=== PATIENT | female | born 1990 | race Caucasian/White ===

== ENCOUNTER 2016-07-30 10:21 | Inpatient (IN) | payer OTHER ==
[2016-08-02] MEDS ORDERED: OXYTOCIN 10 UNITS/ML VIAL ONE (11:47)
[2016-08-02] MEDS ORDERED: IV START KIT ONE (11:47)
[2016-08-02] MEDS ORDERED: PUMP TUBING ONE (11:48)
[2016-08-02] MEDS ORDERED: MINERAL OIL 25 ML BOT ONE (11:48)
[2016-08-02] MEDS ORDERED: OXYTOCIN IN LR 500 ML IV ONE (11:48)
[2016-08-02] MEDS ORDERED: LIDOCAINE Viscous 2% 15 ML UDCUP ONE (11:48)
[2016-08-02] MEDS ORDERED: LIDOCAINE 1% (PRES FREE) 30 ML VIAL ONE (11:48)
[2016-08-02] MEDS ORDERED: SODIUM CHLORIDE 0.9% FLUSH 10 ML ONE (11:48)
--- NOTE | 2016-08-02 12:43 | HP ---
ASHLEIGH DAS : 1990 DATE OF ADMISSION: August 02, 2016 HISTORY OF PRESENT ILLNESS: Ashleigh Das is a 26-year-old female, gestational age of 40.6 weeks admitted with recurrent episodes of hypertension in the office. Her home blood pressure values ranged from 126/59 to 133/86. However, in the office on four occasions, the blood pressures ranged from 130 to 170/100. The last one was on July 30, 2016, and she was sent to [facility] for induced hypertension labs and evaluated by Dr. Hugo who did not feel she needed admission. I discussed options with the patient including resting at home versus induction of labor and cervical ripening for post dates induced hypertension and discussed Cytotec and Pitocin versus continuing the . Risks of Cytotec were discussed including hyperstimulation and distress and uterine rupture versus worsening of blood pressures including the possibility of preeclampsia. Patient and partner have opted for induction of labor with cervical ripening with Cytotec at this time. OB HISTORY: 1, para 0. BOSOM PRESSER HISTORY: Menarche 10 times 31 times 4. She has had no sexually transmitted diseases. PAST MEDICAL HISTORY: Negative. SOCIAL HISTORY: Nonsmoker, nondrinker. PAST SURGICAL HISTORY: Negative. FAMILY HISTORY: Includes diabetes. REVIEW OF SYSTEMS: Noncontributory. The baby is moving. PHYSICAL EXAMINATION: GENERAL: This is a healthy female in no distress. Physical exam taken from the chart. NECK: Thyroid was not palpable. BREAST: Exam was normal. HEART: Regular sinus rhythm. No heart murmurs. LUNGS: Clear. ABDOMEN: Currently the abdomen is measuring 40 weeks size, vertex presentation. heart present. Abdomen is nontender. PELVIC: Cervix is 1 cm, 70% effaced, vertex -3. EXTREMITIES: 1+ edema both legs. Reflexes are normal. ASSESSMENT: induced hypertension which does resolve with bedrest. PLAN: Cervical ripening and then induction of labor.
[2016-08-02] MEDS: MISOPROSTOL 25 MCG TABLET VG SCH ×2 (12:45→17:42)
[2016-08-02 13:13] LABS: ABSOLUTE NEUTROPHIL COUNT 8.2 K/mm3 (1.8-7.7); BASO % 0.1 % (0.2-1.0); EOS # 0.1 (0.0-0.5); EOS % 0.5 % (0.9-2.9); HEMATOCRIT 33.1 % (37.0-47.0); HEMOGLOBIN 11.1 gm/l (12.0-16.0); IMM NEUT% 0.4 % (0-1); LYMPH # 1.9 (1.0-4.8); LYMPH % 17.3 % (15-45); MEAN CELL VOLUME 90.9 fl (81.0-99.0); MEAN CORPUSCULAR HEMOGLOBIN 30.5 pg (27.0-31.0); MEAN CORPUSCULAR HGB CONC 33.5 g/dl (33.0-37.0); MEAN PLATELET VOLUME 11.5 fl (7.4-10.4); MONO # 0.9 (0.0-0.8); MONO % 8.1 % (4-12); NEUT % 73.6 % (43-75); PLATELET COUNT 270 K/mm3 (130-400); RED CELL DISTRIBUTION WIDTH 14.6 % (11.5-14.5)
[2016-08-02 13:17] LABS: CREATININE,RANDOM URINE 55 mg/dL
[2016-08-02 13:20] LABS: ALB/GLOB RATIO 1.1 (>1.0); ALBUMIN 3.4 gm/dL (3.5-5.7); CALCIUM 9.2 mg/dL (8.6-10.3); URIC ACID 4.9 mg/dL (2.3-7.6)
[2016-08-02 14:14] VITALS: BMI 51.5
--- NOTE | 2016-08-02 15:06 | PDOC36 ---
Provider Note Subject: Intrapartum note Note: Pt was seen and counseled. 26yo at 40+6, admitted from clinic with high blood pressure. Initial BP in FBC normal. PIH labs are unremarkable. FHT = reactive, reassuring, cat I, no decels TOCO = no ctx Cx by RN - 1cm dilated Abdomen: efw = 4200g discussed gestational hypertension, pt has intermittently elevated blood pressures, however not consistent. No proteinuria and PIH labs are negative, no preeclampsia at this time. reasonable for induction for post-term . risks of IOL including c/section, hyperstimulation, infection are reviewed. misoprostol for cervical ripening indication and risks are reviewed, discussed traditionally used for induction, but not FDA approved pitocin and epidural also discussed start misoprostol cervical ripening
[2016-08-02] MEDS ORDERED: EPINEPHRINE ONE (16:16)
--- NOTE | 2016-08-02 17:19 | PDOC36 ---
Provider Note Subject: Induction note Note: Pt feels very mild contractions. FHT: 130's, reactive, mod phuong, no decels [place]: q2-5 min SVE: 3/70/-3, soft posterior s/p misoprostol x 1 OK to start pitocin at this time
[2016-08-02] MEDS: LACTATED RINGERS 1,000 ML IV SCH (17:28)
[2016-08-02] MEDS: OXYTOCIN IN LR 500 ML IV PRN ×4 (17:32→23:17)
[2016-08-03] MEDS: OXYTOCIN IN LR 500 ML IV PRN ×7 (00:29→05:20)
[2016-08-03] MEDS: LACTATED RINGERS 1,000 ML IV SCH ×4 (05:20→21:54)
--- NOTE | 2016-08-03 08:05 | PDOC36 ---
Provider Note Subject: Progress Note Note: H&P reviewed. 26 yo at 41 weeks, being induced since yesterday afternoon. Pt hoping for natural childbirth but starting to have some bad pain low and in front. No ROM yet but some bloody show. FH category 1, baseline 120, boy, EFW 4000gm perhaps VE cervix anterior, stretchy 4cm, 95% eff, membranes loose, vertex loosely applied -3 station Pitocin now at 13 mu/mn Imp: Hopefully now moving in to active labor. Pelvis seems adeq for delivery of this baby. Plan: Continue pitocin Shower or jacuzzi Ambulate Consider AROM with next exam.
--- NOTE | 2016-08-03 12:46 | PDOC36 ---
Provider Note Subject: Progress Note Note: Pt feeling more pain, mostly in front, but when she is in bed its in her back. Contractions are longer. Pitocin at 15mu/mn FH cat 1 VE cvx high but anterior, vertex still loosely applied membranes intact and bulging stretchy, 5cm, -3 station, 100% eff AROM performed with pt's permission, yielding clear fluid. Imp: Actve labor Pt trying to avoid pain meds. Plan: Expectant, continue pitocin. Position change.
[2016-08-03] MEDS ORDERED: EPIDURAL PUMP SET ONE (14:50)
[2016-08-03] MEDS ORDERED: FENTANYL/ROPIVACAINE EPIDURAL 250 ML EP ONE (14:50)
[2016-08-03] MEDS ORDERED: OXYTOCIN IN LR 500 ML IV ONE (15:14)
[2016-08-03] MEDS ORDERED: EPIDURAL PROCEDURE TRAY ONE (15:18)
[2016-08-03] MEDS: FENTANYL/ROPIVACAINE EPIDURAL 250 ML EP SCH (15:48)
[2016-08-03] MEDS ORDERED: EPHEDRINE SULFATE 50 MG/ML 1ML VIAL IV PRN (16:01)
[2016-08-03] MEDS ORDERED: ONDANSETRON 4 MG/2ML 2 ML VIAL IV PRN (16:01)
[2016-08-03] MEDS ORDERED: LACTATED RINGERS 500 ML IV PRN (16:01)
[2016-08-03] MEDS ORDERED: NALOXONE HCL 0.4 MG/ML VIAL IV PRN (16:01)
[2016-08-03] MEDS ORDERED: DIPHENHYDRAMINE HCL 50 MG/1 ML VIAL IV PRN (16:01)
[2016-08-03] MEDS ORDERED: SODIUM CHLORIDE 0.9% 500 ML IV PRN (16:01)
[2016-08-03] MEDS ORDERED: METOCLOPRAMIDE HCL 5 MG/ML 2ML VIAL IV PRN (16:01)
[2016-08-03] MEDS ORDERED: NALBUPHINE HCL 20 MG/ML AMP IV PRN (16:01)
[2016-08-03] MEDS ORDERED: CALCIUM CARBONATE 500 MG TAB.CHEW PO ONE (18:29)
--- NOTE | 2016-08-03 18:29 | PDOC36 ---
Provider Note Subject: Progress and descent Note: S: Pt is much more comfortable after the epidural. But now she is shaking. She does not feel cold. Not aware of contrx, no pressure Minimal water has come out. O: VS stable afebrile FH category 1, except for a few variables earlier Exam: cervix 100%, 8cm, stretchy vertex well applied and even coming thru the cervix, -1 station Position ROT/ROP ? Imp: Good progress since epidural placed. Possibly OP Plan: Position change. Left lateral for a bit. Expectant management on pitocin 16mu/mn.
[2016-08-03] MEDS ORDERED: CITRIC ACID/SODIUM CITRATE 15 ML UDCUP PO ONE (20:27)
--- NOTE | 2016-08-03 21:08 | PDOC36 ---
Provider Note Subject: progress note Note: Pt feeling very comfortable. No pain no pressure. Exam FH 120-130 baseline but accels up to 190's, no worrisome pattern VE cervix 9cm, with vertex coming thru -1 station Pt does have some good pushing effort ?position, + caput, +molding. Imp: Progressive change Plan: Continue pit, position change.
--- NOTE | 2016-08-03 23:17 | PDOC36 ---
Provider Note Subject: Progress note Note: S: Berna having more pain, gerry low and in front. She is anxious and shaking some. O: FH 130 with accels to 200, gerry with scalp stim of position change. Active baby boy. VE rim of cervix all around, vertex -1/0 station IUPC discussed, but when I tried to place it, vertex had come down to 0 station withcervix very hard to palpate. I was not able to float the catheter in, but scalp clip placed. Imp: Progressive change ?head position but it seems to de descending. Plan: continue pit, expectant.
--- NOTE | 2016-08-04 01:15 | PDOC36 ---
Provider Note Subject: Progress Note: Epidural working well. Pt now feeling pressure like she needs to move her bowels. She has an instinct to push. Exam: fully dilated with vertex lower, caput is at +2 station, but cranium is at perhaps 0/+1 station Pt will start pushing with contractions.
[2016-08-04] MEDS: OXYTOCIN IN LR 500 ML IV PRN (01:29)
[2016-08-04] MEDS ORDERED: CEFAZOLIN SODIUM 2 GRAM DUPLEX 2 G in Premix (D5W) 50 ml 1 EACH IV PRN (03:04)
[2016-08-04] MEDS ORDERED: CEFAZOLIN SODIUM 2 GRAM DUPLEX 50 ML IV ONE (03:11)
[2016-08-04] MEDS ORDERED: LACTATED RINGERS 1,000 ML IV SCH (03:15)
[2016-08-04] MEDS: LACTATED RINGERS 1,000 ML IV SCH ×3 (03:16→19:10)
[2016-08-04] MEDS ORDERED: FENTANYL 100 MCG/2 ML VIAL ONE (03:16)
[2016-08-04] MEDS ORDERED: EtCO2 Monitoring Set ONE (03:33)
[2016-08-04] MEDS ORDERED: EPHEDRINE SULFATE UD SYR 25 MG 25 MG/5 ML SYRINGE IV ONE (03:42)
[2016-08-04] MEDS ORDERED: MIDAZOLAM HCL 5 MG/5 ML VIAL ONE ×2 (03:57→04:33)
[2016-08-04] MEDS ORDERED: METOCLOPRAMIDE HCL 5 MG/ML 2ML VIAL ONE (04:32)
[2016-08-04] MEDS ORDERED: OXYTOCIN 10 UNITS/ML VIAL ONE (04:32)
[2016-08-04] MEDS ORDERED: ROPIVACAINE 0.5% 30 ML VIAL ONE (04:32)
[2016-08-04] MEDS ORDERED: OXYCODONE HCL 5 MG TABLET PO PRN (06:26)
[2016-08-04] MEDS ORDERED: LANOLIN 50 APPLIC/7G TUBE TP PRN (06:26)
[2016-08-04] MEDS ORDERED: DIPHENHYDRAMINE HCL 25 MG CAPSULE PO PRN (06:26)
[2016-08-04] MEDS ORDERED: OXYTOCIN IN LR 500 ML IV ONE (06:26)
[2016-08-04] MEDS ORDERED: DIPHTH,PERTUSS(ACELL),TET VAC 0.5 ML VIAL IM V ONE (06:26)
[2016-08-04] MEDS ORDERED: DIPHENHYDRAMINE HCL 50 MG/1 ML VIAL IV PRN (06:26)
[2016-08-04] MEDS ORDERED: MEASLES,MUMPS&RUBELLA VACCINE 0.5 ML VIAL SUB-Q V ONE (06:26)
--- NOTE | 2016-08-04 06:31 | PDOC36 ---
Provider Note Subject: pre-op note Note: Pt is exhausted and discouraged. Despite coaching she is not pushing effectively. Vertex is perhaps asynclitic, ROP, with large caput but cranium has shown no further descent from 0/+1 station FH stable, category 1 Imp: Slow progress and descent since 6:30pm when pt was 8cm. Based on the size of this head, the baby feels larger than I hoped. At this point , this is failure to descend in the second stage of labor. Plan: Primary section for delivery.
--- NOTE | 2016-08-04 06:31 | PCMBPN ---
Brief Post Op Note: Date of Procedure: 08/04/16 Start Time: 03:50 Preoperative Diagnosis: 1. Failure to descend in second stage 2. Respiratory arrest Postoperative Diagnosis: 1. Same 2. Respiratory arrest probably secondary to high spinal 3. Persistent occiput posterior Procedure: Primary section (lower uterine segment transverse incision) Surgeon: Jennifer Palomino Assist:Dr Vickie MD Anesthesia: Tabby Ocampo CRNA General anesthesia with intubation after epidural bolus and respiratory arrest Findings: Thick adipose layer, well developped CHRIS, baby boy with ROP deflexed head, old meconium. at 03:57, baby with good tone and respiratory effort immediately, 8/ 9, weight 7lb 15oz Posterior placenta Condition: Guarded Complications: no surgical complications IV Fluids: 3300 mLs of LR Urine Output: 100 mLs Estimated Blood Loss: 800 mLs Tourniquet Time: N/A Specimens: N/A Implants: N/A Drains: N/A
[2016-08-04] MEDS ORDERED: PUMP TUBING ONE (06:34)
[2016-08-04] MEDS: FENTANYL/ROPIVACAINE EPIDURAL 250 ML EP SCH (06:47)
[2016-08-04] MEDS: OXYCODONE/ACETAMINOPHEN 5/325 MG TABLET PO PRN ×4 (06:49→22:11)
[2016-08-04] MEDS: KETOROLAC TROMETHAMINE 30 MG/ML 1 ML VIAL IV PRN ×2 (07:13→20:18)
--- NOTE | 2016-08-04 09:12 | OP ---
Mary Das : 1990 DATE OF SURGERY: 08/04/2016 PREOPERATIVE DIAGNOSES: 1. Failure to descend in the second stage. 2. Respiratory arrest. POSTOPERATIVE DIAGNOSES: 1. Failure to descend in the second stage. 2. Persistent occiput posterior. 3. Respiratory arrest probably secondary to high spinal anesthesia. PROCEDURE PERFORMED: A primary section (lower uterine segment transverse incision). SURGEON: Dr. Jennifer Palomino. CERAMIC ENGINEERING PROFESSOR: Dr Moo Johnston. SASH MAKER: Tabby Ocampo CRNA ESTIMATED BLOOD LOSS: 800 mL. FINDINGS: The patient was delivered of a vigorous baby boy from the right occiput posterior position. He had a deflexed head. There was old meconium in the fluid. time was at 0357 on 08/04/2016. He was born with good tone and respiratory effort. His scores were 8 at one minute and 9 at five minutes and 9 at ten minutes. He weighed 7 pounds 15 ounces. INDICATION: Berna Das is a 26-year-old primigravida who was admitted for induction of labor because of postdates and labile hypertension. She progressed through her labor to about 8 cm around 6:30 p.m. There was then very slow progression and descent after that point, but the patient did become fully dilated and the top of the head was almost +2 station. It was clear, however, that there was a large amount of molding and caput and the cranium of the baby actually never came down through the narrowest part of the pelvis. The patient was fully dilated and began pushing approximately 10 minutes before 1:00AM. At that time, the scalp clip came off, but it was replaced. Approximately a half of an hour later there was very little descent of the presenting part and it was decided to increase the Pitocin to 17 milliunits per minute. The patient had relatively poor pushing effort, but there was virtually no movement of the presenting part. Finally, at approximately 0245 on the decision was made to proceed with a section. Risks and possible complications were reviewed and the consent was signed. My concern was that this baby was actually bigger than I expected. I thought that he was in a persistent occiput posterior position and I felt that a vaginal was unlikely. The operating room team was called in. Fortunately, heart tones were always very normal and reassuring, so I did not feel that we needed to hurry. The patient was given a bolus of meds through her epidural catheter in the delivery room by the an/sqq 89(v)15 sonar system journeyman at 0321. Just a few minutes after that the patient began feeling different. She mouthed that she could not speak and knew that something was not right. Just shortly after that she went into respiratory arrest at 0324. A code was called. Fortunately Tabby Ocampo and the nurses and I witnessed this respiratory arrest. The patient was immediately placed on oxygen by a face mask. The ambu bag was obtained and an oral airway was placed and then we could oxygenate her fairly well. The patient was completely unresponsive, however, so the decision was made to intubate her immediately. This was done without any delay by the an/sqq 89(v)15 sonar system journeyman. During this time, there was a concern about the heart which initially was lost because the monitor pulled off her leg as we changed her position for the intubation. Once we got the baby back on the monitor his heart rate was in the 90's. As soon as Berna's oxygenation improved, however, his heart rate started coming up. I rapidly made the decision to move to the operating room quickly for the section and this was done without delay. By the time the patient was brought to the operating room and was placed on the operating room table heart tones had come back up to the high 120's and were amazingly stable. I suspected the baby's deceleration might have lasted as much as 5 minutes, but with good oxygenation for mom the baby's oxygenation improved and the deceleration resolved without any other resuscitation. At this point, it was clear that we needed to proceed with the section as soon as Berna was stabilized. Preparations were made in the usual fashion for the surgery and heart tones were monitored. Once Tabby felt that it was okay to proceed with the surgery the scalp clip was removed and the abdomen was prepped and draped for a transverse suprapubic incision. While we were still monitoring the baby a timeout was performed verifying proper patient, procedure, position, personnel, and equipment. Our working diagnosis at that time was that this patient had developed a high spinal anesthesia due to the bolus. It was felt that it was safe for Berna to proceed with the surgery under general anesthesia and intubation. Dr. Gabriel was called for resuscitation of the baby and our full team was ready and available. After verifying an adequate level of anesthesia a transverse incision was made above the symphysis pubis with the scalpel. This was carried down through the thick adipose layer with sharp and blunt dissection and using cautery for hemostasis. The fascia was incised the length of the incision. It was mobilized superiorly and inferiorly. The muscles were in the midline. Peritoneum was identified and opened vertically. There was a moderate amount of free fluid in the peritoneal cavity. The lower uterine segment was well developed. The Srini retractor was rapidly placed. A transverse incision was then made in the visceral peritoneum which was mobilized inferiorly. A transverse incision was then made in the lower uterine segment with a scalpel and this was carried down to the endometrial cavity. Membranes were ruptured yielding a large amount of meconium stained fluid; this looked like old meconium. During labor we never did see much amniotic fluid because the baby's head was functioning as a cork. The baby's left shoulder was presenting. With some difficulty I was able to gently insert my hand in front of the baby's face and on the right side. His head was then flexed and the head was elevated into the incision. The baby was then delivered from a right occiput posterior position without any difficulty. When he was born he had reasonably good tone and some early respiratory effort. Mouth and nose were suctioned as he was stimulated and he did have some crying. The cord was clamped and then cut and the baby was handed to the resuscitation nurse. His scores were 8 at one minute, 9 at five minutes, and 9 at ten minutes. Eventually he was weighed at 7 pounds 15 ounces. A segment of cord was preserved for cord blood gases and then some regular cord blood was obtained. The placenta was then delivered from the posterior part of the uterus without difficulty. All blood clots and debris were removed from the uterus. The uterus was then exteriorized. T-clamps were placed on the uterine incision. There was a small extension of the incision down from the right angle, this was repaired first with a continuous interlocking suture of 1 Chromic. The remainder of the uterine incision repair was then done starting at the left angle and this yielded good hemostasis. A second layer was then used to imbricate the full incision. The pelvis was well irrigated with warm saline and blood clots and debris were removed. The uterus was placed back within the peritoneal cavity. Further irrigation was done and hemostasis was again verified. The Srini retractor was then removed. Lap, sponge, and instrument counts were reported as correct. The abdomen was then closed in layers as follows peritoneum and muscle were reapproximated with some 2-0 Vicryl suture, the fascia was closed with a 1 PDS looped suture, the adipose layer was reapproximated with 0 plain suture, and then the skin was closed with 4-0 Monocryl followed by Steri-Strips. The patient was then cleaned up and the drapes were removed. According to the an/sqq 89(v)15 sonar system journeyman she had started breathing on her own for the last 20 minutes or so of the surgery. Indeed within a short amount time it was possible to extubate her. Berna was then taken to the intensive care unit for her postoperative recovery. She was in good condition and breathing well on her own. JOB: [id number]
[2016-08-04 09:14] LABS: HEMATOCRIT 25.3 % (37.0-47.0); HEMOGLOBIN 8.5 gm/l (12.0-16.0); MEAN CELL VOLUME 91.3 fl (81.0-99.0); MEAN CORPUSCULAR HEMOGLOBIN 30.7 pg (27.0-31.0); MEAN CORPUSCULAR HGB CONC 33.6 g/dl (33.0-37.0); RED CELL DISTRIBUTION WIDTH 14.7 % (11.5-14.5)
[2016-08-04 09:40] LABS: ALB/GLOB RATIO 0.9 (>1.0); ALBUMIN 2.3 gm/dL (3.5-5.7); CALCIUM 7.9 mg/dL (8.6-10.3)
[2016-08-04] MEDS: DOCUSATE SODIUM 100 MG CAPSULE PO SCH ×2 (12:35→20:19)
[2016-08-04] MEDS: HYDROMORPHONE PCA (MONOJECT) 12 MG/30 ML INJ.SOLN IV SCH ×2 (19:08→19:11)
[2016-08-04] MEDS: PRENATAL VIT/FE FUMARATE/FA 1 TABLET PO SCH (19:09)
[2016-08-05] MEDS: LACTATED RINGERS 1,000 ML IV SCH ×4 (00:01→09:41)
[2016-08-05] MEDS: OXYCODONE/ACETAMINOPHEN 5/325 MG TABLET PO PRN ×5 (02:30→19:39)
[2016-08-05] MEDS: KETOROLAC TROMETHAMINE 30 MG/ML 1 ML VIAL IV PRN (02:30)
[2016-08-05 06:00] LABS: HEMATOCRIT 26.3 % (37.0-47.0); HEMOGLOBIN 8.6 gm/l (12.0-16.0); MEAN CORPUSCULAR HEMOGLOBIN 31.4 pg (27.0-31.0); MEAN CORPUSCULAR HGB CONC 32.7 g/dl (33.0-37.0); RED CELL DISTRIBUTION WIDTH 15.3 % (11.5-14.5)
--- NOTE | 2016-08-05 06:52 | PDOC44 ---
- Subjective Day: 1 (feels well, offers no complaints) Reports Flatus, Reports Pain Tolerable, Reports , Reports Lochia Light, Reports Tolerating Clear Liquids, Reports Tolerating Regular Diet, Denies Nausea, Denies Vomiting, Denies Fever - Objective Temp Pulse Resp BP Pulse Ox 98.1 F 112 18 132/61 100 08/05/16 02:30 08/05/16 02:30 08/05/16 02:30 08/05/16 02:30 08/04/16 11:50 Lab Results 08/05/16 08/04/16 05:30 09:05 WBC 13.9 H 18.5 H RBC 2.74 L 2.77 L Hgb 8.6 L 8.5 L D Hct 26.3 L 25.3 L Plt Count 214 205 Creatinine 0.8 AST 16 ALT 9 08/05/16 08/04/16 05:30 09:05 MCH 31.4 H MCHC 32.7 L RDW 15.3 H 14.7 H Carbon Dioxide 19 L Glucose 148 H Calcium 7.9 L Alkaline Phosphatase 112 H Total Protein 4.8 L Albumin 2.3 L Albumin/Globulin Ratio 0.9 L Current Medications Generic Name Dose Route Start Last Admin Trade Name Freq PRN Reason Stop Dose Admin Diphenhydramine HCl 25 mg 08/04/16 06:26 Benadryl PO Q6H PRN Itching (Mild/Moderate) Diphenhydramine HCl 25 mg 08/04/16 06:26 Benadryl IV Q6H PRN Itching (Severe) Docusate Sodium 100 mg 08/04/16 09:00 08/04/16 20:19 Colace PO 100 mg BID [place] Administration Emollient Ointment 1 applic 08/04/16 06:26 [id number] TP PRN PRN sore nipples Lactated Ringer's 1,000 mls @ 125 mls/hr 08/04/16 06:26 08/05/16 00:01 Lactated Ringers IV Not Given .Q8H [place] Ibuprofen 800 mg 08/04/16 06:26 Motrin PO Q8H PRN Pain Ketorolac Tromethamine 30 mg 08/04/16 06:26 08/05/16 02:30 Toradol IV 30 mg Q6H PRN Administration Pain (Mild/Moderate) Multivi/Iron Carb/Fe Sulf/FA/Prenat 1 tab 08/04/16 09:00 08/04/16 19:09 Plus PO Not Given DAILY [place] Oxycodone HCl 5 - 10 mg 08/04/16 06:26 Roxicodone PO Q3H PRN Pain (Severe) Oxycodone/Acetaminophen 1 - 2 tab 08/04/16 06:26 08/05/16 06:19 Percocet 5/325 PO 2 tab Q4H PRN Administration Pain (Moderate) Sodium Chloride 10 ml 08/04/16 06:26 08/04/16 20:19 Normal Saline 10ml Flush IV 10 ml PRN PRN Administration IV Flush Sodium Chloride 10 ml 08/04/16 09:00 08/05/16 02:30 Normal Saline 10ml Flush IV 10 ml Q8HR [place] Administration - Physical Exam General: Afebrile, No Acute Distress Psych/Mental Status: Mood/Affect Appropriate, Judgment/Insight Intact, Bonding Well Lungs: Clear to Auscultation Bilaterally, Normal Air Movement Breast: Soft, Skin intact, Nipples Intact, No Tenderness, No Erythema, No Engorged Fundus: Firm, Midline, At Umbilicus, Other (nontender) Abdomen: Normal Bowel Sounds, Obese, Mild Distention, Other (passed flatus, no bowel movement yet), No Tenderness Genitourinary: Other (voiding without difficulty) Lochia: Light Extremities: No Tenderness Wound PROCESS ENG: Dressing in Place, Dressing Clean/Dry/Intact - Problems:Assessment/Plan (1) Anemia, Status: Acute Disposition: Stable
[2016-08-05] MEDS: HYDROMORPHONE PCA (MONOJECT) 12 MG/30 ML INJ.SOLN IV SCH (07:15)
[2016-08-05] MEDS: MISOPROSTOL 25 MCG TABLET VG SCH ×2 (07:16→07:17)
[2016-08-05] MEDS: PRENATAL VIT/FE FUMARATE/FA 1 TABLET PO SCH (09:53)
[2016-08-05] MEDS: IBUPROFEN 800 MG TABLET PO PRN ×2 (09:53→17:50)
[2016-08-05] MEDS: FERROUS SULFATE (65 Fe) 325 MG TABLET PO SCH (09:53)
[2016-08-05] MEDS: DOCUSATE SODIUM 100 MG CAPSULE PO SCH ×2 (09:53→19:39)
[2016-08-06] MEDS: OXYCODONE/ACETAMINOPHEN 5/325 MG TABLET PO PRN ×4 (00:15→18:43)
[2016-08-06] MEDS: IBUPROFEN 800 MG TABLET PO PRN ×3 (03:23→22:17)
[2016-08-06] MEDS: DOCUSATE SODIUM 100 MG CAPSULE PO SCH ×3 (07:15→22:17)
[2016-08-06] MEDS: HYDROMORPHONE PCA (MONOJECT) 12 MG/30 ML INJ.SOLN IV SCH (07:16)
[2016-08-06] MEDS: LACTATED RINGERS 1,000 ML IV SCH ×3 (07:16→22:22)
--- NOTE | 2016-08-06 08:17 | PDOC44 ---
- Subjective Day: 2 (feels well, offers no complaints) Reports Flatus, Reports Pain Tolerable, Reports , Reports Lochia Light, Reports Tolerating Clear Liquids, Reports Tolerating Regular Diet, Denies Nausea, Denies Vomiting, Denies Fever - Objective Temp Pulse Resp BP Pulse Ox 97.8 F 91 18 157/85 100 08/06/16 08:00 08/06/16 08:00 08/06/16 08:00 08/06/16 08:00 08/04/16 11:50 Current Medications Generic Name Dose Route Start Last Admin Trade Name Freq PRN Reason Stop Dose Admin Diphenhydramine HCl 25 mg 08/04/16 06:26 Benadryl PO Q6H PRN Itching (Mild/Moderate) Diphenhydramine HCl 25 mg 08/04/16 06:26 Benadryl IV Q6H PRN Itching (Severe) Docusate Sodium 100 mg 08/04/16 09:00 08/06/16 07:15 Colace PO Not Given BID [place] Emollient Ointment 1 applic 08/04/16 06:26 [id number] TP PRN PRN sore nipples Ferrous Sulfate 325 mg 08/05/16 09:00 08/05/16 09:53 Ferrous Sulfate PO 325 mg DAILY [place] Administration Lactated Ringer's 1,000 mls @ 125 mls/hr 08/04/16 06:26 08/06/16 07:27 Lactated Ringers IV Not Given .Q8H [place] Ibuprofen 800 mg 08/04/16 06:26 08/06/16 03:23 Motrin PO 800 mg Q8H PRN Administration Pain Ketorolac Tromethamine 30 mg 08/04/16 06:26 08/05/16 02:30 Toradol IV 30 mg Q6H PRN Administration Pain (Mild/Moderate) Multivi/Iron Carb/Fe Sulf/FA/Prenat 1 tab 08/04/16 09:00 08/05/16 09:53 Plus PO 1 tab DAILY [place] Administration Oxycodone HCl 5 - 10 mg 08/04/16 06:26 Roxicodone PO Q3H PRN Pain (Severe) Oxycodone/Acetaminophen 1 - 2 tab 08/04/16 06:26 08/06/16 00:15 Percocet 5/325 PO 2 tab Q4H PRN Administration Pain (Moderate) Sodium Chloride 10 ml 08/04/16 06:26 08/04/16 20:19 Normal Saline 10ml Flush IV 10 ml PRN PRN Administration IV Flush Sodium Chloride 10 ml 08/04/16 09:00 08/06/16 07:17 Normal Saline 10ml Flush IV Not Given Q8HR [place] - Physical Exam General: Afebrile, No Acute Distress Psych/Mental Status: Mood/Affect Appropriate, Judgment/Insight Intact, Bonding Well Lungs: Clear to Auscultation Bilaterally, Normal Air Movement Breast: Soft, Skin intact, Nipples Intact, No Tenderness, No Erythema, No Engorged Fundus: Firm, Midline, Below Umbilicus, Other (nontender) Abdomen: Normal Bowel Sounds, Other (flatus passed, small bowel movement yesterday per patient), No Tenderness, No Distention Genitourinary: Other (voiding without difficulty) Lochia: Light Extremities: No Tenderness Wound ROLLER MILL OPERATOR: Dressing in Place, Dressing Clean/Dry/Intact, Well Approximated, Other (incision intact), No Drainage, No Erythema, No Edema - Problems:Assessment/Plan (1) Anemia, Status: Acute Disposition: Stable, Anticipate DC to Home
[2016-08-06] MEDS: FERROUS SULFATE (65 Fe) 325 MG TABLET PO SCH (08:33)
[2016-08-06] MEDS: PRENATAL VIT/FE FUMARATE/FA 1 TABLET PO SCH (08:33)
[2016-08-07] MEDS: LACTATED RINGERS 1,000 ML IV SCH (00:51)
[2016-08-07] MEDS: OXYCODONE/ACETAMINOPHEN 5/325 MG TABLET PO PRN ×3 (01:18→10:36)
[2016-08-07] MEDS: HYDROMORPHONE PCA (MONOJECT) 12 MG/30 ML INJ.SOLN IV SCH (05:28)
[2016-08-07] MEDS: IBUPROFEN 800 MG TABLET PO PRN (10:35)
--- NOTE | 2016-08-07 11:39 | PDOC39B ---
Hospital Course: ADMIT DATE: 08/02/16 DISCHARGE DATE: 08/07/16 ADMISSION DIAGNOSES: PIH, 41 weeks gestation, failure to descend in second stage of labor, respiratory arrest. PROCEDURES: Induction of labor, primary section (LST) HISTORY OF PRESENT ILLNESS: 26 year old G1 T0 L0 at 41 weeks 1 days presenting with on-going labile hypertension. Pt responded to cervical ripening and pitocin augmentation. HOSPITAL COURSE: The patient had failure to descend despite 2 hours of pushing. After assembling the OR team, the pt was given a bolus thru the epidural catheter. Unfortunately she went into respiratory arrest, probably due to a "high spinal."She was intubated immediately and the c/section was carried out without delay resulting in the of a vigorous baby boy. Mother and baby have done well since the except for struggles with . By day of discharge the patient is ambulating, eating, voiding, and passing flatus without difficulty. Pain is controlled and lochia is appropriate. She is and pumping. - Physical Exam Vital Signs: Temp Pulse Resp BP Pulse Ox 98.1 F 70 14 127/77 100 08/07/16 03:30 08/07/16 03:30 08/07/16 03:30 08/07/16 03:30 08/04/16 11:50 General: Afebrile Psych/Mental Status: Mood/Affect Appropriate, Bonding Well Neurological: Normal Speech HEENT: Atraumatic Lungs: Clear to Auscultation Bilaterally Cardiovascular: Regular Rate and Rhythm Fundus: Firm Abdomen: Normal Bowel Sounds Lochia: Light Extremities: Full ROM Skin: Normal Color, Warm, Dry Wound: Dressing Clean/Dry/Intact - Discharge Diagnosis (1) Anemia, Status: Acute (2) delivery delivered Status: Acute (3) PIH ( induced hypertension) Status: Acute - Discharge Plan Condition: Good Disposition: Home Prescriptions: Docusate Sodium [COLACE 100 MG CAPSULE (SHF)] 100 mg PO BID #60 capsule Ibuprofen [IBUPROFEN 800 MG TABLET (SHF)] 800 mg PO Q8H PRN #100 tablet PRN Reason: Pain FERROUS SULFATE (65 Fe) [IRON FERROUS SULFATE 325 MG TABLET (SHF)] 325 mg PO DAILY #100 tablet Oxycodone HCl/Acetaminophen [PERCOCET 5/325 MG TABLET (SHF)] 1 - 2 tab PO Q4H PRN #60 tablet PRN Reason: Pain (Moderate) Follow-Up: Jennifer Palomino MD [Staff Physician] - In 7-10 days
[2016-08-07 13:55] VITALS: BP 131/79
== END 2016-08-07 15:35 | disposition home or self-care (01) | DRG 765 ==
LOC: EDSTATUS 10:21 → FBC 08-02 10:22
PROVIDERS: ADMIT Obstetrics & Gynecology; ATTEND Obstetrics & Gynecology
PROC: 3E0P7GC Introduction of Other Therapeutic Substance into Female Reproductive, Via Natural or Artificial Opening (ICD-10-PCS; 2016-08-02)
PROC: 3E033VJ Introduction of Other Hormone into Peripheral Vein, Percutaneous Approach (ICD-10-PCS; 2016-08-02)
PROC: 4A0H7FZ Measurement of Products of Conception, Cardiac Rhythm, Via Natural or Artificial Opening (ICD-10-PCS; 2016-08-02)
PROC: 10D00Z1 Extraction of Products of Conception, Low, Open Approach (ICD-10-PCS; principal; 2016-08-04)
PROC: 5A1935Z Respiratory Ventilation, Less than 24 Consecutive Hours (ICD-10-PCS; 2016-08-04)
DX: O13.4 Gestational [pregnancy-induced] hypertension without significant proteinuria, complicating childbirth (principal); R09.2 Respiratory arrest; O32.4XX0 Maternal care for high head at term, not applicable or unspecified; Z37.0 Single live birth; O75.89 Other specified complications of labor and delivery; O48.0 Post-term pregnancy; O61.0 Failed medical induction of labor; O77.0 Labor and delivery complicated by meconium in amniotic fluid; O99.02 Anemia complicating childbirth; D64.9 Anemia, unspecified; Z3A.41 41 weeks gestation of pregnancy; O74.6 Other complications of spinal and epidural anesthesia during labor and delivery; Y92.230 Patient room in hospital as the place of occurrence of the external cause

== ENCOUNTER 2016-07-30 10:44 | Outpatient (CLI) | payer OTHER ==
[2016-07-30 11:08] VITALS: BMI 51.0
[2016-07-30 11:49] LABS: ABSOLUTE NEUTROPHIL COUNT 6.7 K/mm3 (1.8-7.7); BASO % 0.1 % (0.2-1.0); EOS # 0.1 (0.0-0.5); EOS % 0.9 % (0.9-2.9); HEMOGLOBIN 10.9 gm/l (12.0-16.0); IMM NEUT% 0.4 % (0-1); LYMPH # 1.5 (1.0-4.8); LYMPH % 16.3 % (15-45); MEAN CELL VOLUME 93.8 fl (81.0-99.0); MEAN PLATELET VOLUME 11.1 fl (7.4-10.4); MONO # 0.9 (0.0-0.8); NEUT % 72.3 % (43-75); PLATELET COUNT 258 K/mm3 (130-400); RED CELL DISTRIBUTION WIDTH 14.4 % (11.5-14.5)
[2016-07-30 12:28] LABS: ALB/GLOB RATIO 0.9 (>1.0); ALBUMIN 3.3 gm/dL (3.5-5.7); CALCIUM 8.7 mg/dL (8.6-10.3); URIC ACID 4.9 mg/dL (2.3-7.6)
[2016-07-30 13:05] LABS: CREATININE,RANDOM URINE 131 mg/dL
--- NOTE | 2016-07-30 13:32 | PDOC36 ---
Provider Note Subject: gestational HBP at 40+ wks no symptoms of PET. VS stable and normotensive, NST category 1, labs all normal. good FM. Home, warning about HBP, symptoms of PET, await induction if possible until onset of spontaneous labor.
== END 2016-07-30 13:30 | disposition home or self-care (01) ==
LOC: FBCOUT 10:44 → FBC 10:45 → FBCOUT 13:30
PROVIDERS: ATTEND Obstetrics & Gynecology
DX: O13.3 Gestational [pregnancy-induced] hypertension without significant proteinuria, third trimester (principal); Z3A.40 40 weeks gestation of pregnancy
CPT/HCPCS: 85025; 80053; 83615; 84550; 84156; 36415; 59025; 81002; G0463

== ENCOUNTER 2016-08-09 13:59 | Outpatient (CLI) | payer OTHER | END 2016-08-09 14:00 | disposition home or self-care (01) | LOC: BABIESSH 13:59 | PROVIDERS: ATTEND Obstetrics & Gynecology | DX: Z39.1 Encounter for care and examination of lactating mother (principal) ==

== ENCOUNTER 2016-08-13 09:54 | Outpatient (CLI) | payer OTHER | END 2016-08-13 09:55 | disposition home or self-care (01) | LOC: BABIESSH 09:54 | PROVIDERS: ATTEND Obstetrics & Gynecology | DX: Z39.1 Encounter for care and examination of lactating mother (principal) ==

== ENCOUNTER 2016-08-16 09:52 | Outpatient (CLI) | payer OTHER | END 2016-08-16 09:53 | disposition home or self-care (01) | LOC: BABIESSH 09:52 | PROVIDERS: ATTEND Obstetrics & Gynecology | DX: Z39.1 Encounter for care and examination of lactating mother (principal) ==

== ENCOUNTER 2016-08-20 10:55 | Outpatient (CLI) | payer OTHER | END 2016-08-20 10:56 | disposition home or self-care (01) | LOC: BABIESSH 10:55 | PROVIDERS: ATTEND Obstetrics & Gynecology | DX: Z39.1 Encounter for care and examination of lactating mother (principal) ==